=== PATIENT | female | born 1975 | race Caucasian/White ===

== ENCOUNTER 2021-02-02 09:48 | Emergency (ER) | payer OTHER, SELFPAY ==
[2021-02-02 09:54] VITALS: BP 143/97; PULSE 82; RESP 16; TEMP 37; O2SAT 99
--- NOTE | 2021-02-02 09:59 | ED.DENTAL ---
HPI - Dental/Oral General Chief complaint: Dental/Oral Stated complaint: tooth pain Time Seen by Provider: 02/02/21 10:00 Source: patient Mode of arrival: ambulatory Limitations: no limitations History of Present Illness HPI Narrative: Filomena Light is a 45 yo female with ADHD, anxiety, who [facility] with [facility] pain that became much worse last night although had some difficulty with a week ago. States has a dentist; not Covid vaccinated Related Data Home Medications Medication Instructions Recorded Confirmed alprazolam 1 mg PO TID 02/02/21 02/02/21 Allergies Allergy/AdvReac Type Severity Reaction Status Date / Time Penicillins Allergy Unknown Swelling Verified 02/02/21 10:02 Review of Systems Review of Systems: CONSTITUTIONAL: Denies fever, chills, sweats. EYES: Denies visual changes, redness, discharge. ENT: Denies rhinorrhea, congestion, sore throat, otalgia. Dental pain right front CARDIOVASCULAR: Denies chest pain, palpitations, edema. RESPIRATORY: Denies dyspnea, wheezing, cough GASTROINTESTINAL: Denies abdominal pain, nausea, vomiting, diarrhea. GENITOURINARY: Denies dysuria, hematuria, abnormal discharge SKIN: Denies rash or itching. NEUROLOGIC: Denies numbness, or focal weakness. PSYCHIATRIC: Denies anxiety or depression. [facility] Past Medical History Medical History ADHD Anxiety Social History Social History (Updated 02/02/21 @ 10:04 by Dorothea Jolly CNP) Smoking status: Never smoker Alcohol intake: current Comments At time of signature, I agree with nursing past medical, surgical, social and family history. There is no relevant family history pertinent to the presenting complaint. Blood pressure elevated at visit today patient has a lot of pain from tooth pain Exam Narrative: GENERAL: This is a well-nourished, well-developed patient, in mild distress. HEAD: normocephalic, atraumatic. EYES: Sclera clear/white. Vision is grossly intact. EARS: External ears normal, . Hearing grossly intact. NOSE: External nose normal without nasal discharge, nares without redness, no rhinorrhea. THROAT: Mucous membranes moist, fair dentition pain in between tooth 6 and 7 NECK: Neck supple, CARDIOVASCULAR: Regular rate and rhythm without murmurs, gallops, or rubs. RESPIRATORY: Clear to auscultation. Breath sounds equal bilaterally. No wheezes, rales, or rhonchi. GASTROINTESTINAL: Abdomen soft, SKIN: warm, intact with no suspicious lesions or rash, good texture and turgor. NEURO: awake, alert, and oriented to person, place and time. There were no obvious focal neurologic abnormalities. Steady gait EXTREMITIES: Normal range of motion. BACK: Nontender without deformity Course Course Emergency Course: Patient here for right front tooth pain that started last night Started on clindamycin, viscous lidocaine, Tylenol 3 Follow-up with dentist Vital Signs Vital signs: Vital Signs Temperature 98.6 F 02/02/21 09:54 Pulse Rate 82 02/02/21 09:54 Respiratory Rate 16 02/02/21 09:54 Blood Pressure 143/97 H 02/02/21 09:54 Pulse Oximetry 99 02/02/21 09:54 Temperature 98.6 F 02/02/21 09:54 Pulse Rate 82 02/02/21 09:54 Respiratory Rate 16 02/02/21 09:54 Blood Pressure 143/97 H 02/02/21 09:54 Pulse Oximetry 99 02/02/21 09:54 MDM - Dental/Oral Differential Diagnosis Differential diagnosis: Likely gingival abscess, dental caries, toothache, dental abscess, fracture of tooth and other Critical Care Time Critical Care Time Critical Care Time: No Discharge Plan Discharge Clinical Impression: Toothache Patient Disposition: Home, Self-Care Condition: Stable Instructions: Toothache (ED) Additional Instructions: Salt water gargles Use viscous lidocaine at mealtimes Take antibiotic as prescribed Prescriptions: New clindamycin HCl 300 mg capsule 300 mg PO BID 7 Days Qty: 14 RF: 0 l
== END 2021-02-02 10:27 | disposition home or self-care (01) ==
PROVIDERS: Emergency Provider Nurse Practitioner
DX: K08.89 Other specified disorders of teeth and supporting structures (principal); F41.9 Anxiety disorder, unspecified
CPT/HCPCS: 99213; G0463

== ENCOUNTER 2024-11-28 13:15 | Emergency (ER) | payer OTHER, SELFPAY ==
--- NOTE | 2024-11-28 13:19 | ED.EYEPROB ---
HPI - Eye Problem General Chief complaint: Eye Problems Stated complaint: bilateral eye irritation, lt elbow pain Time Seen by Provider: 11/28/24 13:19 Source: patient Mode of arrival: ambulatory Limitations: no limitations History of Present Illness HPI Narrative: Filomena is a 49-year-old female patient with complaints of bilateral eye irritation and left elbow pain. She reports the left elbow pain has been going on for over 1 month. States she was working out and developed pain in the left lateral elbow. Pain is shooting from her elbow down into her wrist. Eye irritation has been going on for the past 2-3 days. States that she has tried putting Vaseline on the area without relief. Denies any drainage from the eyes. Used her daughter's mascara. No other environmental changes. Related Data Home Medications ?Medication ?Instructions ?Recorded ?Confirmed ?Last Taken ?Type alprazolam 1 mg tablet 1 mg PO TID 02/02/21 02/02/21 Unknown History aripiprazole 5 mg tablet mg 11/28/24 Unknown History dextroamphetamine-amphetamine 20 11/28/24 Unknown History mg tablet Allergies Allergy/AdvReac Type Severity Reaction Status Date / Time Penicillins Allergy Unknown Swelling Verified 02/02/21 10:02 Review of Systems Review of Systems: Pertinent positives per HPI. Patient denies any fever, chills, rash, headache, visual changes, dizziness, cough, shortness of breath, chest pain, palpitations, nausea, vomiting, diarrhea, constipation, abdominal pain, or any urinary issues. PMFSH Past Medical History Medical History ADHD Anxiety Social History Social History Smoking status: Never smoker Alcohol intake: current Comments At the time of my signature, I reviewed and agree with the nursing past medical, surgical, social, and family history. There is no relevant family history pertinent to the patient complaint. Exam Narrative: General: Well-developed, well nourished, in no apparent distress Head: Normocephalic, atraumatic Eyes: Pupils equally round and reactive to light bilaterally, EOM intact, sclera and conjunctive clear, no discharge, blistered like scaly itchy rash to bilateral lower eyelids Ears: TMs intact and clear, ear canals clear, no drainage, grossly hearing normal. Nose: Nares patent, no discharge, no inflammation, no sinus tenderness. Mouth: Oral pharynx without lesions or masses, good dentition, MMM. Neck: Supple, trachea midline, no enlargement of anterior or posterior cervical nodes, no thyroid masses or goiter palpable. Cardio: Regular rate and rhythm, s1 and s2 normal, no murmur appreciated. Resp: Clear to auscultation bilaterally, no rhonchi, rales, wheezing or rubs Musculoskeletal: No deformity, tender to palpation over the lateral epicondyle, sharp shooting pain radiating into the left wrist, pain with flexion and extension of the left elbow, grossly normal range of motion, muscle strength strong and equal, peripheral pulse strong, no edema, no cyanosis, normal gait and station Course Course Emergency Course: Portions of this record may have been created with voice recognition software. Level of Care: Express Care Visit Vital Signs Vital signs: Vital Signs Temperature 36.5 C 11/28/24 13:32 Pulse Rate 67 11/28/24 13:32 Respiratory Rate 16 11/28/24 13:32 Blood Pressure 127/87 11/28/24 13:32 Pulse Oximetry 100 11/28/24 13:32 Oxygen Delivery Room Air 11/28/24 13:32 Temperature 36.5 C 11/28/24 13:32 Pulse Rate 67 11/28/24 13:32 Respiratory Rate 16 11/28/24 13:32 Blood Pressure 127/87 11/28/24 13:32 Pulse Oximetry 100 11/28/24 13:32 Oxygen Delivery Room Air 11/28/24 13:32 Vital signs reviewed MDM - Eye Problem MDM Narrative Medical decision making narrative: At the time of visit patient is resting comfortably on the exam table. Patient appears to be nontoxic. Plan: I suspect patient has left lateral epicondylitis as well as dermatitis to bilateral lower eyelids. Prescription for triamcinolone cream and Medrol Dosepak was sent to pharmacy. Supportive measures were discussed with the patient and they voiced understanding discharge instructions and agrees to treatment plan. Return precautions reviewed Differential Diagnosis Differential diagnosis: Likely corneal abrasion, conjunctivitis, acute iritis, hyphema, periorbital cellulitis, subconjunctival hemorrhage, glaucoma, corneal ulcer, ruptured globe and other (Contact dermatitis, lateral epicondylitis, arthritis, tendinitis, elbow fracture, elbow strain) Discharge Plan Discharge Clinical Impression: Epicondylitis, lateral (tennis elbow) Qualifiers: Laterality: right Qualified Code(s): M77.11 - Lateral epicondylitis, right elbow Dermatitis contact, eyelid Qualifiers: Laterality: bilateral Eyelid: lower Qualified Code(s): H01.112 - Allergic dermatitis of right lower eyelid Patient Disposition: Home Condition: Stable Instructions: Antibiotic Form, Tennis Elbow (ED), Contact Dermatitis (ED) Additional Instructions: Apply triamcinolone cream as directed-try to avoid getting this in your eye Take Medrol Dosepak as directed Avoid hot showers May moisturize skin using a non scented lotion twice daily Avoid scratching as this can cause a secondary infection May take benadryl 25-50mg every 6 hours as needed for itching. May purchase a tennis elbow brace to help alleviate discomfort Rest, ice, and elevate the left elbow Tylenol/motrin for pain May apply Aspercreme, blue emu, or lidocaine to the left elbow to help alleviate pain Follow up with your PCP if symptoms persist more than 1 week. Go to the Emergency Room if symptoms worsen- fever, rash spreading with treatment, shortness of breath, tongue swelling, drooling, or chest pain Patient Language: Japanese Prescriptions: New methylprednisolone [Medrol (Derek)] 4 mg tablets,dose pack See Rx Instructions PO .COMPLEX Qty: 21 0RF Rx Instructions: orally per package directions triamcinolone acetonide 0.1 % cream 1 applic topical BID 7 Days Qty: 30 0RF No Action alprazolam 1 mg Tablet 1 mg PO TID acetaminophen-codeine 300-30 mg tablet 1 tablet PO Q6H PRN (Reason: pain) Qty: 20 0RF dextroamphetamine-amphetamine 20 mg tablet aripiprazole 5 mg tablet Follow-up/Referrals: PHYSICIAN,[facility] HE[facility] COACH [Primary Care Provider] - Time of Disposition: 13:36 Quality NIHSS Nursing Documentation ED NIHSS nursing documentation: reviewed/agree
--- OUTSIDE RECORDS SUMMARY | 2024-11-28 13:22 | XMS_ITS | Clinical Summary ---
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 10 Tab 07/28/2017 Active ondansetron (ZOFRAN) 4 MG Tablet Take 1 Tab by mouth every 8 hours as needed for Nausea. 30 Tab 07/29/2017 Active orphenadrine (NORFLEX) 100 MG TABLET SR 12 HR Take 1 Tab by mouth 2 times daily as needed for Muscle spasms. 15 Tab 11/25/2017 Active Hydrocodone-Akash taminophen (VICODIN PO) Take by mouth. Active SUMAtriptan (IMITREX) 100 MG Tablet Take 1 Tab by mouth daily as needed for Migraine. Use as directed. May repeat dose in 2 hours if headache recurs. 9 Tab 02/15/2018 Active ketorolac (TORADOL) 10 MG Tablet Take 1 Tab by mouth every 6 hours as needed for Moderate or more severe pain. 20 Tab 02/15/2018 Active metoclopramide (REGLAN) 10 MG Tablet Take 1 Tab by mouth 4 times daily as needed for Nausea - 1st line. 10 Tab 02/15/2018 Active potassium chloride (MICRO-K) 10 MEQ Capsule CR Take 2 Caps by mouth daily. 10 Cap 02/18/2018 Active hydrOXYzine (VISTARIL) 25 MG Capsule Take 1 Capsule by mouth 3 times daily as needed for Anxiety. 30 Capsule 03/10/2024 Active Social History Tobacco Use Types Packs/Day Years Used Date Smoking Tobacco: Never Smokeless Tobacco: Never Alcohol Use Standard Drinks/Week Comments No 0 (1 standard drink = 0.6 oz pur e alcohol) Comments Unknown Sex and Gender Information Value Date Recorded Sex Assigned at Not on file Legal Sex Female 8:09 PM CDT Gender Identity Not on file Sexual Orientation Not on file Last Filed Vital Signs Vital Sign Reading Time Taken Comments Blood Pressure 125/93 03/10/2024 3:00 PM CDT Pulse 81 03/10/2024 3:00 PM CDT Temperature 36.9 C (98.4 F) 03/10/2024 11:56 AM CDT Respiratory Rate 25 03/10/2024 3:00 PM CDT Oxygen Saturation 100% 03/10/2024 3:00 PM CDT Inhaled Oxygen Concentration - - Weight 60.9 kg (134 lb 4.2 oz) 03/10/2024 11:56 AM CDT Height 175.3 cm (5' 9) 03/10/2024 11:56 AM CDT Body Mass Index 19.83 03/10/2024 11:56 AM CDT Plan of Treatment Health Maintenance Due Date Last Done Comments Hepatitis C Virus (HCV) Screening 1977 Mammogram 1977 TdaP Immunization 1977 Hepatitis B Immunization (1 of 3 - 19+ 3-dose series) 1996 Pap Smear 1998 Cervical Cancer Screening (CCS) 2007 HPV/Cotest 2007 Discussion re Starting/Frequ ency of Mammograms 2017 Colonoscopy 2022 Colorectal Cancer Screening 2022 Influenza Immunization (#1) 2024 SARS-COV-2 Immunization ( season) 2024 Respiratory Syncytial Virus (RSV) Immunization (Adult) (1 - 1-dose 75+ series) 2052 Meningococcal Immunization (ACWY) Aged Out No longer eligible based on patient's age to complete this topic Pneumococcal Immunization Combined Aged Out No longer eligible based on patient's age to complete this topic Rotavirus Immunization Aged Out No lo nger eligible based on patient's age to complete this topic Insurance MEDICAID [employer] 

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
--- OUTSIDE RECORDS SUMMARY | 2024-11-28 13:26 | XMS_ITS | Continuity of Care Document ---
Author Organization [facility] Address [address] [facility] [place] [address] Phone Care Team Providers Care Outsole Rounder Name Role Phone Tom Bowen MD Unavailable [...] Diagnoses Date Provider Providers Copied on Encounter [facility], [address], [address], [place] tel:[phone] [facility] No Information 7 Andrés Santos. [address], [place], [address] , [place]. tel:[phone] Referring Provider: Arlene Aguirre [address], [place], [place], [address]. tel:[phone] OFFICE/OUTPA TIENT VISIT, [facility], [place], [facility], [address], [place], [place], [address], [place] tel:[phone] [facility] chronic pain1 (chief complaint) anxiety1 (chief complaint) weight loss1 (chief complaint) Hep C (chief complaint) Generalized Anxiety DisorderChronic viral hepatitis CRheumatoid arthritis Sep- 0 7 Andrés Santos. [address], [place], [place], [address] , [place]. tel:[phone] Referring Provider: Arlene Aguirre [address], [place], [place], [address]. tel:[phone] PREV VISIT, EST, AGE 18-39 [facility], [address], [place], [place], [address], [place] tel:[phone] [facility] Physical (chief complaint) Encntr for general adult medical exam w/o abnormal findings 6 Andrés Santos. [address], [place], [place], [address] , [place]. tel:[phone] Referring Provider: Arlene Aguirre [address], [place], [place], [address]. tel:[phone] OFFICE/OUTPA TIENT VISIT, EST [facility], [address], [place], [place], [address], [place] tel:[phone] [facility] Anxiety1 (chief complaint) ADD (chief complaint) finger swelling (chief complaint) hep c1 (chief complaint) Chronic viral hepatitis CGeneralized anxiety disorderEdema, unspecifiedAttentio n deficit 6 Andrés Santos. [address], [place], [place], [address] , [place]. tel:[phone] Referring Provider: Arlene Aguirre [address], [place], [place], [address]. tel:[phone] OFFICE/OUTPA TIENT VISIT, [facility], [place], [facility], [address], [place], [place], [address], [place] tel:[phone] [facility] anxiety1 (chief complaint) ADD1 (chief complaint) hand swelling1 (chief complaint) hep C1 (chief complaint) fibromyalg ia1 (chief complaint) Chronic viral hepatitis CGeneralized anxiety disorderAttention and concentration deficitEdema 5 Andrés Santos. [address], [place], [place], [address] , [place]. tel:[phone] Referring Provider: Arlene Aguirre [facility] [address], [place], [place], [address]. tel:[phone] OFFICE/OUTPA TIENT VISIT, [facility] [place], [facility], [address], [place], [place], [address], [place] tel:[phone] [facility] chronic pain1 (chief complaint) Anxiety1 (chief complaint) ADD1 (chief complaint) water retention1 (chief complaint) Chronic viral hepatitis CGeneralized anxiety disorderAttention deficitFibromyalgia 0 5 Andrés Santos. [address], [place], [place], [address] , [place]. [phone] Referring Provider: Arlene Agu[address], [place], [place], [address]. tel:[phone] OFFICE/OUTPA TIENT VISIT, [facility], [place], [facility], [address], [place], [place], [address], [place] tel:[phone] [facility] hep c (chief complaint) Anxiety (chief complaint) ADD (chief complaint) back pain (chief complaint) swelling (chief complaint) Unspecified viral hepatitis C without hepatic comaGeneralized anxiety disorderAttention deficit disorder of childhood without mention of hyperactivityFibrom yalgia 5 Andrés Hughes [address], [place], [place], [address] , [place]. tel:[phone] Referring Provider: Arlene Aguir[address], [place], [place], [address]. tel:[phone] OFFICE/OUTPA TIENT VISIT, [facility] [place], [facility], [address], [place], [place], [address], [place] tel:[phone] [facility] Hep C (chief complaint) anxiety (chief complaint) ADD (chief complaint) chrronic apin (chief complaint) swelling (chief complaint) Unspecified viral hepatitis C without hepatic comaGeneralized anxiety disorderADDChronic pain 5 Andrés Santos. [address], [place], [place], [address] , [place]. [phone] Referring Provider: Arlene Aguirre [facility] [address], [place], [place], [address]. tel:[phone] OFFICE/OUTPA TIENT VISIT, [facility] [place], [facility], [address], [place], [place], [address], [place] tel:[phone] [facility] Hep C (chief complaint) hyperglyce [place] (chief complaint) anxiety (chief complaint) ADD (chief complaint) Hepatitis CGeneralized anxiety disorderHyperglycem iaADD 5 Andrés Santos. [address], [place], [place], [address] , [place]. tel:[phone] Referring Provider: Arlene Aguir[address], [place], [place], [address]. tel:[phone] OFFICE/OUTPA TIENT VISIT, [facility] [place], [facility], [address], [place], [place], [address], [place] tel:[phone] [facility] glucose (chief complaint) LFT (chief complaint) cough (chief complaint) Anxiety (chief complaint) HyperglycemiaLiver diseaseGeneralized anxiety disorderAcute bronchitis 5 Andrés Santos. [address], [place], [place], [address] , [place]. [phone] Referring Provider: Arlene Aguirre [address], [place], [place], [address]. tel:[phone] PREV VISIT, NEW, AGE 18-39 [facility], [address], [place], [place], [address], [place] tel:[phone] [facility] Medicine Physical (chief complaint) Routine medical exam 5 Andrés Santos. [address], [place], [place], [address] , [place]. tel:[phone] Family History Family Member Type Diagnosis Age At Onset Mother Problem (finding) anixety Sister Problem (finding) Sister Problem (finding) accident Father Problem (finding) Coronary artery disease Payers Payer name Insurance type Covered alliance party ID Authoriza tion(s) No Information Social [...] was successfully treated with hep C in [place] anxiety1 Pt has chronic a nxiety and depression. Pt has been takign xanax. Pt just moved back from [place]. Pt denies any suicidal or homicdial thought [...] suicidal thought. 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 Pt denies any other complaints Instructions Date Instruction Additional Infor mation No Information Assessments Type Assessment Date No Information
[2024-11-28 13:32] VITALS: BP 127/87; PULSE 67; RESP 16; TEMP 36.5; O2SAT 100
== END 2024-11-28 13:45 | disposition home or self-care (01) ==
PROVIDERS: Emergency Provider Nurse Practitioner Family
DX: M77.11 Lateral epicondylitis, right elbow (principal); H01.113 Allergic dermatitis of right eye, unspecified eyelid; F41.9 Anxiety disorder, unspecified
CPT/HCPCS: 99213; G0463

== ENCOUNTER 2025-02-17 13:37 | Emergency (ER) | payer OTHER, SELFPAY ==
--- OUTSIDE RECORDS SUMMARY | 2025-02-17 13:39 | XMS_ITS | Clinical Summary ---
Author Organization [facility] Address [address] [place] [address] Phone Care Team Providers Care Purchasing Analyst Name Role Phone Provider, None Primary Care [...] Discussion re Starting/Frequ ency of Mammograms 2017 Cologuard 2022 Colonoscopy 2022 Colorectal Cancer Screening 2022 Immunochemical Fecal Occult Blood 2022 SARS-COV-2 Immunization ( season) 2024 Influenza Immunization (#1) 2025 Respiratory Syncytial Virus (RSV) Immunization (Adult) (1 - 1-dose 75+ series) 2052 Human Papillomavirus (HPV) Immunization Aged Out No longer eligible b ased on patient's age to complete this topic Meningococcal Immunization (ACWY) Aged Out No longer eligible based on patient's age to complete this topic Pneumococcal Immunization Combined Aged Out No longer eligible based on patient's age to complete this topic Rotavirus Immunization Aged Out No lo nger eligible based on patient's age to complete this topic Insurance MEDICAID [employer] Care Teams Purchasing Analyst Relationship Specialty Start Date End Date Provider, None ID PCP - General 07/28/17
[2025-02-17 13:41] VITALS: BP 127/92; PULSE 72; RESP 20; TEMP 36.6; O2SAT 100
--- NOTE | 2025-02-17 14:09 | ED_ITS ---
HPI - Dental/Oral General Chief complaint: Dental/Oral Stated complaint: Toothache Source: patient Mode of arrival: ambulatory Limitations: no limitations History of Present Illness HPI Narrative: 49 year old female presents to [facility] with complaints of pain to right upper teeth for the past 3 days. Patient reports that she has a history of dental issues as she is recovering addict. Patient has been completing warm saltwater gargles as well as taking ibuprofen with little relief. Patient currently is not established with a dentist. Patient denies fever, chills, nausea vomiting or diarrhea. MD Complaint: tooth pain Location: Tooth # (tooth #6 and #10) Onset (ago): day(s) (3) Duration: constant Relieving factors: NSAIDs Exacerbating factors: nothing Context: history of dental caries Treatment prior to arrival: oral analgesic Related Data Home Medications ?Medication ?Instructions ?Recorded ?Confirmed ?Last Taken ?Type alprazolam 1 mg tablet 1 mg PO TID 02/02/21 02/02/21 Unknown History aripiprazole 10 mg tablet mg 02/17/25 Unknown History dextroamphetamine-amphetamine 30 02/17/25 Unknown History mg tablet Allergies Allergy/AdvReac Type Severity Reaction Status Date / Time Penicillins Allergy Unknown Swelling Verified 02/17/25 13:44 Review of Systems Constitutional: Constitutional: Denies chills, Denies fatigue, Denies fever(s) and Denies weakness ENT: Denies vertigo, Denies dizziness, Denies epistaxis and Denies nasal congestion Comments: Dental pain Respiratory: Respiratory: Denies cough, Denies dyspnea and Denies wheezing Gastrointestinal: Gastrointestinal: Denies diarrhea, Denies nausea and Denies vomiting Musculoskeletal: Musculoskeletal: Denies arthralgias and Denies joint swelling Integumentary/Breasts: Skin/Breast: Denies rash Neurologic: Denies syncope and Denies headache(s) [facility], [facility] Past Medical History Medical History Anxiety ADHD Social History Social History Smoking status: Never smoker Alcohol intake: current Comments At time of signature, I agree with nursing past medical, surgical, social and family history. There is no relevant family history pertinent to the presenting complaint. Exam Const: General: healthy appearing and no acute distress Nutritional Appearance: well nourished Orientation/consciousness: patient oriented x3 Limitations: no limitations HENMT: Head: normal to inspection Ears: external ears normal, TM's normal bilaterally and EAC's normal Face/Nose/Sinus: Normal external nose present Teeth and gingiva: abnormal tooth and associated gingiva (Erythema swelling noted surrounding right upper tooth #6 and #10. ) upper right other (No obvious abscess noted) Throat: posterior oropharynx normal and uvula midline Eyes: Conjunctivae: conjunctivae normal Neck: Neck: normal visual inspection Resp: Effort & Inspection: normal respiratory effort and not labored Auscultation: clear to auscultation bilaterally, no crackles, no rales and no rhonchi Cardio: Rate: regular rate Rhythm: regular rhythm Heart sounds: no murmurs Skin: General skin exam: normal color Rashes: no rashes Wounds: no wounds Neuro: General: patient oriented x3 and moves all extremities Speech: normal speech Gait exam (Neuro): Normal gait present Psych: Mental Status: mental status grossly normal Affect: normal affect Attitude: cooperative Course Course Level of Care: Express Care Visit Vital Signs Vital signs: Vital Signs Temperature 36.6 C 02/17/25 13:41 Pulse Rate 72 02/17/25 13:41 Respiratory Rate 20 02/17/25 13:41 Blood Pressure 127/92 H 02/17/25 13:41 Pulse Oximetry 100 02/17/25 13:41 Oxygen Delivery Room Air 02/17/25 13:41 Temperature 36.6 C 02/17/25 13:41 Pulse Rate 72 02/17/25 13:41 Respiratory Rate 20 02/17/25 13:41 Blood Pressure 127/92 H 02/17/25 13:41 Pulse Oximetry 100 02/17/25 13:41 Oxygen Delivery Room Air 02/17/25 13:41 MDM - Dental/Oral MDM Narrative Medical decision making narrative: Encouraged patient to establish care with local dentist. Encouraged patient to take antibiotic as prescribed and to continue to complete warm saltwater gargles. Educated patient to proceed to the emergency room if symptoms worsen Differential Diagnosis Differential diagnosis: Likely dental caries, toothache and dental abscess Critical Care Time Critical Care Time Critical Care Time: No Discharge Plan Discharge Clinical Impression: Toothache Patient Disposition: Home Condition: Stable Instructions: Antibiotic Form, Toothache (ED) Additional Instructions: Complete warm salt water gargles Do not take other NSAIDs while taking meloxicam [id number] Tylenol as needed for pain Take antibiotic as prescribed Monitor symptoms closely and proceed to the emergency room if symptoms worsen Establish care with local dentist Patient Language: Surinamese Prescriptions: New clindamycin HCl [Cleocin HCl] 300 mg capsule 300 mg PO TID 10 Days Qty: 30 0RF meloxicam 7.5 mg tablet 7.5 mg PO BID 10 Days Qty: 20 0RF No Action dextroamphetamine-amphetamine 30 mg tablet aripiprazole 10 mg tablet alprazolam 1 mg Tablet 1 mg PO TID Follow-up/Referrals: PHYSICIAN,COMMUNITY DEVELOPMENT OFFICER [Primary Care Provider] - Stand Alone Forms: Work/School Release IP Time of Disposition: 14:16
== END 2025-02-17 14:24 | disposition home or self-care (01) ==
PROVIDERS: Emergency Provider Nurse Practitioner Family
DX: K08.89 Other specified disorders of teeth and supporting structures (principal); F41.9 Anxiety disorder, unspecified; F90.9 Attention-deficit hyperactivity disorder, unspecified type
CPT/HCPCS: 99213; G0463

== ENCOUNTER 2025-05-27 12:35 | Emergency (ER) | payer OTHER, SELFPAY ==
--- OUTSIDE RECORDS SUMMARY | 2025-05-27 12:37 | XMS_ITS | Clinical Summary ---
Author Organization [facility] Address [address] [place] [address] Phone Care Team Providers Care Geriatric Social Work Professor Name Role Phone Provider, None Primary Care [...] Screening 1977 Mammogram 1977 TdaP Immunization 1977 Varicella Immunization (1 of 2 - 13+ 2-dose series) 1990 Hepatitis B Immunization (1 of 3 - 19+ 3-dose series) 1996 Pap Smear 1998 Cervical Cancer Screening (CCS) 2007 HPV/Cotest 2007 Discussion re Starting/Frequ ency of Mammograms 2017 Cologuard 2022 Colonoscopy 2022 Colorectal Cancer Screening 2022 Immunochemical Fecal Occult Blood 2022 Influenza Immunization (#1) 2025 SARS-COV-2 Immunization ( season) 2025 Respiratory Syncytial Virus (RSV) Immunization (Adult) [...] Insurance MEDICAID [employer] Care Teams Geriatric Social Work Professor Relationship Specialty Start Date End Date Provider, None MD PCP - General 07/28/17
[2025-05-27 12:39] VITALS: BP 105/73; PULSE 84; RESP 18; TEMP 36.6; O2SAT 100
--- NOTE | 2025-05-27 13:17 | ED.DENTAL ---
HPI - Dental/Oral General Chief complaint: Dental/Oral Stated complaint: Tooth Pain Time Seen by Provider: 05/27/25 13:00 Source: patient, RN notes reviewed and old records reviewed Mode of arrival: ambulatory Limitations: no limitations History of Present Illness HPI Narrative: 49 year old female presents to [facility] with complaints of dental pain to the dental pain right upper lateral incisor for 3 days and has been taking Ibuprofen for her discomfort. Patient reports that the pain in her tooth is causing her to have a headache for which she has been taking Ibuprofen for H//a and dental pain with minimal decrease in pain. Patient reports that she has dental appointment in August is as soon as she can get an appointment. Patient reports that tooth is sensitive to hot and cold. MD Complaint: tooth pain Location: Tooth # (#6) Onset (ago): day(s) (3) Severity scale (1-10): 8 Treatment prior to arrival: oral analgesic (Ibuprofen) Related Data Home Medications ?Medication ?Instructions ?Recorded ?Confirmed ?Last Taken ?Type alprazolam 1 mg tablet 1 mg PO TID 02/02/21 02/02/21 Unknown History aripiprazole 10 mg tablet mg 02/17/25 Unknown History dextroamphetamine-amphetamine 30 02/17/25 Unknown History mg tablet Allergies Allergy/AdvReac Type Severity Reaction Status Date / Time Penicillins Allergy Unknown Swelling Verified 05/27/25 13:07 Review of Systems Review of Systems: CONSTITUTIONAL: Denies fever, chills, or sweats. ENT: Denies rhinorrhea, congestion, sore throat, or otalgia. Reports dental pain to right upper incisor with noted decay and some redness of gum, no obvious abscess noted CARDIOVASCULAR: Denies chest pain, palpitations, or edema. RESPIRATORY: Denies cough or dyspnea. SKIN: Denies rash or itching. MUSCULOSKELETAL: Denies myalgia. NEUROLOGIC: reports headache, denies any dizziness or any visual changes All systems reviewed & are unremarkable except as noted in HPI and below PMFSH Past Medical History Medical History History of dental problems Tubal Anxiety ADHD Social History Social History Smoking status: Never smoker Alcohol intake: current Substance use: former Last use: past history of addiction, clean for many years Living arrangements: with family Gender identity (if verbalized by the patient): Female Comments At time of signature, agree with nursing past medical, surgical, social and family history. There is no relevant family history pertinent to the presenting complaint Exam Narrative: GENERAL: Well-appearing, well-nourished, and in no acute distress. HEAD: Normocephalic, atraumatic. EYES: PERRLA and EOMI., ENT: Nares clear, no rhinorrhea or epistaxis. Mucous membranes moist. Missing teeth, caries noted with dental pain to #6 tooth right upper incisor, some redness of gum with no obvious abscess, no trismus or any facial swelling noted. Patient has no Floyd angina noted no difficulty swallowing or with her breathing NECK: Supple. no lymphadenopathy CHEST: Clear to auscultation. No respiratory distress.SAO2 100% on room air HEART: Regular rate and rhythm. No murmur heard. Normal peripheral pulses. SKIN: Warm, dry, no rash. NEURO: No focal deficits. Alert and oriented x3. Course Course Emergency Course: Patient is aware of diagnosis, understands and agrees to treatment plan. Anticipatory guidance given. Patient agrees to follow-up as directed and is aware of reasons to seek care at the emergency department. Portions of this record may have been created with voice recognition software Level of Care: Express Care Visit Vital Signs Vital signs: Vital Signs Temperature 36.6 C 05/27/25 12:39 Pulse Rate 84 05/27/25 12:39 Respiratory Rate 18 05/27/25 12:39 Blood Pressure 105/73 05/27/25 12:39 Pulse Oximetry 100 05/27/25 12:39 Oxygen Delivery Room Air 05/27/25 12:39 Temperature 36.6 C 05/27/25 12:39 Pulse Rate 84 05/27/25 12:39 Respiratory Rate 18 05/27/25 12:39 Blood Pressure 105/73 05/27/25 12:39 Pulse Oximetry 100 05/27/25 12:39 Oxygen Delivery Room Air 05/27/25 12:39 Reviewed MDM - Dental/Oral MDM Narrative Medical decision making narrative: Patients pain and complaint coupled with physical findings are consistent with dentalgia. There are no focal signs of space occupying lesions that are compromising to the airway; no dysphagia, odynophagia, dysphonia, or dyspnea. No uvular deviation or soft palate edema. Patient is non-toxic appearing. The floor of the mouth is soft with no signs of Floyd's Angina; no induration below mandible, no neck pain.? Patient is without trismus or drooling and able to swallow secretions.? Patient is felt appropriate for discharge home with dental follow up. Differential Diagnosis Differential diagnosis: Likely dental caries, toothache and other (dental problems) Medical Records Attestation: I reviewed the patient's medical records. Critical Care Time Critical Care Time Critical Care Time: No Discharge Plan Discharge Clinical Impression: Dental caries, Toothache Patient Disposition: Home Condition: Stable Instructions: Antibiotic Form, Toothache (ED) Additional Instructions: Avoid temperature extremes May apply heat or ice to the face Gentle brushing and flossing Antibiotic as directed Tylenol for lesser pain Use ibuprofen regularly Follow-up with the dentist as soon as possible--see the list provided If your symptoms persist, change or worsen significantly before you can contact your personal physician then please, without delay, go to the emergency department for further evaluation. Follow-up with PCP in 7-10 days or sooner if needed Patient Language: Romanian Prescriptions: New clindamycin HCl [Cleocin HCl] 300 mg capsule 300 mg PO Q8H Qty: 30 0RF ibuprofen 600 mg tablet 600 mg PO QID PRN (Reason: fever or pain) Qty: 30 0RF Rx Instructions: no more that 4 per day No Action dextroamphetamine-amphetamine 30 mg tablet aripiprazole 10 mg tablet alprazolam 1 mg Tablet 1 mg PO TID Follow-up/Referrals: PHYSICIAN,PATIENT ACCESS DIRECTOR [Primary Care Provider, Internal Medicine] Stand Alone Forms: Work/School Release IP Time of Disposition: 13:24 [place] Coma Scale Eyes: Open Verbal: Oriented and Alert Motor: Follows Commands Joseph Coma Total Score: 15
== END 2025-05-27 13:25 | disposition home or self-care (01) ==
PROVIDERS: Emergency Provider Registered Nurse
DX: K02.9 Dental caries, unspecified (principal); F41.9 Anxiety disorder, unspecified; F90.9 Attention-deficit hyperactivity disorder, unspecified type
CPT/HCPCS: 99213; G0463